=== PATIENT | female | born 1945 | race Caucasian/White ===

== ENCOUNTER 2022-07-07 14:06 | Inpatient (IN) ==
[2022-07-07] MEDS ORDERED: Naloxone 0.4 MG/ML INJ IVP PRN (17:41)
[2022-07-07] MEDS ORDERED: *HR* Dextrose 50 % in Water (Syg) 50 ML SYRINGE IVP PRN (17:51)
[2022-07-07] MEDS ORDERED: D5% in Water 1,000 ML IVC PRN (17:51)
[2022-07-07] MEDS ORDERED: Dextrose Gel 15 GM/37.5 ML TUBE PO PRN ×2 (17:51)
[2022-07-07] MEDS: Insulin LISPRO 300 UNITS/3 ML VIAL SUBQ SCH ×2 (18:21→22:17)
[2022-07-07 18:26] LABS: Immature Granulocytes % 0.4 % (0-4); Mean Platelet Volume 10.3 fL (9.4-12.4); Red Cell Distribution Width 15.9 % (11.5-14.5)
[2022-07-07 18:28] LABS: Basophils # 0.1 K/mcL (0.0-0.2); Basophils % 0.2 %; Eosinophils # 0.1 K/mcL (0.0-0.6); Eosinophils % 0.5 %; Hematocrit 32.7 % (35.3-44.9); Hemoglobin 9.9 g/dL (11.5-15.4); Lymphocytes % 41.6 %; Mean Corpuscular HGB Conc 30.3 g/dL (31.6-35.5); Mean Corpuscular Hemoglobin 26.6 pg (28.0-33.3); Mean Corpuscular Volume 87.9 fL (83.0-100.0); Monocytes # 7.8 K/mcL (0.0-1.3); Neutrophils # 8.7 K/mcL (1.6-8.9); Platelet Count 354 K/mcL (140-400); Red Blood Count 3.72 M/mcL (3.82-4.97); Segmented Neutrophils % 30.3 %; White Blood Count 28.8 K/mcL (4.3-11.1)
[2022-07-07 18:45] LABS: Calcium 9.5 mg/dL (8.6-10.3); Magnesium 2.4 mg/dL (1.6-2.6); Phosphorous 11.2 mg/dL (2.7-4.5); Potassium 5.7 mEq/L (3.5-5.1); Uric Acid 9.7 mg/dL (2.3-7.6)
[2022-07-07 18:48] LABS: Salicylate < 2.5 mg/dL (15.0-30.0)
[2022-07-07 19:04] LABS: Platelet Estimate Normal (Normal); Reactive Lymphocytes Present (Not Present)
[2022-07-07] MEDS ORDERED: Insulin Human Regular 10 UNIT in 0.9 % Sodium Chloride 10 ML IV ONE (19:19)
[2022-07-07] MEDS ORDERED: *HR* Dextrose 50 % in Water (Syg) 50 ML SYRINGE IVP ONE (19:19)
[2022-07-07] MEDS ORDERED: Sodium Bicarbonate 150 MEQ in D5% in Water 1,000 ML IVC SCH (19:30)
[2022-07-07] MEDS ORDERED: levoFLOXacin 750 MG/150 ML 750 MG/150 ML BAG IVPB SCH (20:00)
[2022-07-07 21:05] LABS: Bacteria,Urine Few per hpf (None-Few); Bilirubin,Urine Negative (Negative); Blood,Urine Moderate (Negative); Budding Yeast,Urine Few per hpf (None Seen); Clarity,Urine Turbid (Clear); Color,Urine Light-Yellow (Yellow); Glucose,Urine (UA) 300 mg/dL (Normal); Ketones,Urine Negative (Negative); Leukocyte Esterase,Urine Large (Negative); Mucus,Urine Few per lpf (None-Few); Nitrite,Urine Negative (Negative); PH,Urine 6.5 pH Units (5.0-8.0); Protein,Urine 70 mg/dL (Neg-Trace); Specific Gravity,Urine 1.012 (1.010-1.025); Squamous Epithelial Cell,Urine Moderate per hpf (None-Few); Transitional Epi Cells,Urine Moderate per hpf (None-Few); Urobilinogen,Urine Normal (Normal); WBC,Urine 50-100 per hpf (0-3)
[2022-07-07 21:10] LABS: Amphetamine Screen,Urine Negative ng/mL (Cutoff=1000); Barbiturate Screen,Urine Negative ng/mL (Cutoff=200); Benzodiazepines Screen,Urine Negative ng/mL (Cutoff=200); Cannabinoid Screen,Urine Negative ng/mL (Cutoff = 50); Cocaine Screen,Urine Negative ng/mL (Cutoff= 300); Opiate Screen,Urine Negative ng/mL (Cutoff=300); Phencyclidine Screen,Urine Negative ng/mL (Cutoff=25)
[2022-07-07 22:06] LABS: Creatine Kinase 38 Units/L (30-223)
[2022-07-07] MEDS: *HR* Heparin 5,000 UNIT/ML VIAL SQ SCH (22:09)
[2022-07-07] MEDS: Calcium Gluconate 1gm/50mL 1 GM/50 ML BAG IVPB SCH ×2 (22:20→23:09)
[2022-07-07] MEDS: Sodium Bicarbonate 150 MEQ in D5% in Water 1,000 ML IVC SCH (22:27)
[2022-07-07 22:37] LABS: Adenovirus F 40/41 PCR Not detected (Not detect); Astrovirus PCR Not detected (Not detect); C.difficile Toxin A/B Gene PCR Not detected (Not detect); Campylobacter by PCR Not detected (Not detect); Cryptosporidium by PCR Not detected (Not detect); Cyclospora cayetanensis PCR Not detected (Not detect); Entamoeba histolytica PCR Not detected (Not detect); Enteroaggregative E.coli(EAEC) Not detected (Not detect); Enteropathogenic E.coli(EPEC) Not detected (Not detect); Enterotoxigenic E.coli (ETEC) Not detected (Not detect); Giardia lamblia PCR Not detected (Not detect); Norovirus GI/GII PCR Not detected (Not detect); Plesiomonas shigelloides PCR Not detected (Not detect); Rotavirus A PCR Not detected (Not detect); Salmonella PCR Not detected (Not detect); Sapovirus PCR Not detected (Not detect); Shig/EnteroinvasiveE coli EIEC Not detected (Not detect); Shigalike tox-prod E coli STEC Not detected (Not detect); Vibrio PCR Not detected (Not detect); Vibrio cholerae PCR Not detected (Not detect); Yersinia enterocolitica PCR Not detected (Not detect)
[2022-07-08 04:41] LABS: Mean Corpuscular HGB Conc 30.7 g/dL (31.6-35.5); Red Cell Distribution Width 15.9 % (11.5-14.5)
[2022-07-08 04:43] LABS: Basophils # 0.1 K/mcL (0.0-0.2); Basophils % 0.2 %; Eosinophils # 0.2 K/mcL (0.0-0.6); Eosinophils % 0.9 %; Hematocrit 28.3 % (35.3-44.9); Hemoglobin 8.7 g/dL (11.5-15.4); Immature Granulocytes % 0.4 % (0-4); Lymphocytes # 10.7 K/mcL (0.6-4.6); Lymphocytes % 41.1 %; Mean Corpuscular Hemoglobin 26.6 pg (28.0-33.3); Mean Corpuscular Volume 86.5 fL (83.0-100.0); Mean Platelet Volume 10.5 fL (9.4-12.4); Monocytes # 7.1 K/mcL (0.0-1.3); Monocytes % 27.4 %; Neutrophils # 7.8 K/mcL (1.6-8.9); Platelet Count 294 K/mcL (140-400); Red Blood Count 3.27 M/mcL (3.82-4.97)
[2022-07-08 05:05] LABS: Albumin 3.1 g/dL (3.5-5.7); Bilirubin,Indirect 0.3 mg/dL (0.0-1.0); Bilirubin,Total 0.3 mg/dL (0.3-1.0); Calcium 8.7 mg/dL (8.6-10.3); Globulin 3.2 g/dL (2.4-3.5); Phosphorous 10.8 mg/dL (2.7-4.5); Potassium 4.6 mEq/L (3.5-5.1); Total Protein 6.3 g/dL (6.4-8.9)
[2022-07-08 05:20] LABS: Platelet Estimate Normal (Normal); Smudge Cells Present (Not Present)
[2022-07-08 05:27] LABS: Estimated Average Glucose 163 mg/dl; Hemoglobin A1C 7.3 %
[2022-07-08] MEDS: *HR* Heparin 5,000 UNIT/ML VIAL SQ SCH ×3 (07:12→22:10)
[2022-07-08] MEDS: Insulin LISPRO 300 UNITS/3 ML VIAL SUBQ SCH ×4 (08:24→22:10)
[2022-07-08] MEDS ORDERED: 0.9 % Sodium Chloride 250 ML IVC PRN (09:31)
[2022-07-08] MEDS ORDERED: *HR* Heparin 10,000 UNIT/10 ML VIAL IV PRN (09:31)
[2022-07-08] MEDS ORDERED: 0.9 % Sodium Chloride 2,000 ML PRIME SCH (09:45)
[2022-07-08 09:56] LABS: Hepatitis B Surface Antibody 57.77 mIU/mL
[2022-07-08 10:07] LABS: Hepatitis B Surface Antigen Nonreactive (Nonreactive)
[2022-07-08] MEDS: Sodium Bicarbonate 150 MEQ in D5% in Water 1,000 ML IVC SCH (10:20)
[2022-07-08] MEDS ORDERED: Heparin 1,000 UNITS/500 mL 500 ML ONE (13:15)
[2022-07-08] MEDS ORDERED: Lidocaine/EPI 1:100k 1% 50 ML VIAL ONE (13:15)
[2022-07-08] MEDS ORDERED: *HR* Heparin 5,000 UNIT/ML VIAL ONE (13:38)
[2022-07-08] MEDS: MetroNIDAZOLE 500 MG/100 ML 500 MG/100 ML BAG IVPB SCH ×2 (19:10→23:43)
[2022-07-09] MEDS: Acetaminophen 325 MG TABLET PO PRN ×2 (00:55→15:01)
[2022-07-09] MEDS: Ondansetron 4 MG/2 ML VIAL IVP PRN ×2 (03:25→16:57)
[2022-07-09 05:23] LABS: Hematocrit 27.7 % (35.3-44.9); Hemoglobin 8.6 g/dL (11.5-15.4); Mean Corpuscular Volume 86.8 fL (83.0-100.0); Mean Platelet Volume 10.5 fL (9.4-12.4); Platelet Count 251 K/mcL (140-400); Red Blood Count 3.19 M/mcL (3.82-4.97); Red Cell Distribution Width 15.5 % (11.5-14.5); White Blood Count 18.5 K/mcL (4.3-11.1)
[2022-07-09 05:43] LABS: Complement C3 111 mg/dL (87-200); Magnesium 1.7 mg/dL (1.6-2.6); Phosphorous 6.8 mg/dL (2.7-4.5); Potassium 3.9 mEq/L (3.5-5.1); Rheumatoid Factor 24 IU/mL (Less than 14)
[2022-07-09] MEDS: *HR* Heparin 5,000 UNIT/ML VIAL SQ SCH ×3 (06:23→20:15)
[2022-07-09] MEDS ORDERED: 0.9 % Sodium Chloride 250 ML IVC PRN (06:34)
[2022-07-09] MEDS ORDERED: 0.9 % Sodium Chloride 2,000 ML PRIME SCH (06:45)
[2022-07-09 08:05] LABS: Lymphocytes # 11.8 K/mcL (0.6-4.6); Monocytes # 0.7 K/mcL (0.0-1.3); Neutrophils # 5.9 K/mcL (1.6-8.9)
[2022-07-09] MEDS ORDERED: *HR* Heparin 10,000 UNIT/10 ML VIAL IV PRN (08:05)
[2022-07-09 08:07] LABS: Platelet Estimate Normal (Normal)
[2022-07-09] MEDS ORDERED: lisinopriL 5 MG TABLET PO SCH (09:00)
[2022-07-09] MEDS ORDERED: Sodium Bicarbonate 150 MEQ in D5% in Water 1,000 ML IVC SCH (09:15)
[2022-07-09] MEDS: Insulin LISPRO 300 UNITS/3 ML VIAL SUBQ SCH ×3 (09:28→17:57)
[2022-07-09 10:20] LABS: Hepatitis B Surface Antigen Nonreactive (Nonreactive)
[2022-07-09 10:48] LABS: Hepatitis C Virus Antibody Nonreactive (Nonreactive)
[2022-07-09 10:49] LABS: Hepatitis B Core IgM Nonreactive (Nonreactive)
[2022-07-09 10:51] LABS: Hepatitis A Antibody IgM Nonreactive (Nonreactive)
[2022-07-09] MEDS ORDERED: *HR* Heparin 5,000 UNIT/ML VIAL ONE (12:57)
[2022-07-09] MEDS: MetroNIDAZOLE 500 MG/100 ML 500 MG/100 ML BAG IVPB SCH ×2 (15:06→15:12)
[2022-07-09] MEDS: Loratadine 10 MG TABLET PO SCH (15:09)
[2022-07-09] MEDS: Aspirin Enteric Coated 81 MG Tablet PO SCH (15:09)
[2022-07-09] MEDS: predniSONE 20 MG TABLET PO SCH (15:12)
[2022-07-09 16:08] LABS: Protein/Creatinine Ratio,Urine 3.58 mg/mg (0.00-0.20); Sodium, Urine 87.5 mEq/L
[2022-07-09] MEDS: Insulin DETEMIR 100 UNIT/ML X5UNITS SUBQ SCH (20:14)
[2022-07-09] MEDS: levoFLOXacin 500 MG/100 ML 500 MG/100 ML BAG IVPB SCH (20:14)
[2022-07-10] MEDS: MetroNIDAZOLE 500 MG/100 ML 500 MG/100 ML BAG IVPB SCH ×3 (01:28→17:05)
[2022-07-10] MEDS: Ondansetron 4 MG/2 ML VIAL IVP PRN (01:28)
[2022-07-10] MEDS: *HR* Heparin 5,000 UNIT/ML VIAL SQ SCH ×3 (06:28→19:58)
[2022-07-10] MEDS: Insulin LISPRO 300 UNITS/3 ML VIAL SUBQ SCH ×3 (07:20→17:06)
[2022-07-10 08:11] LABS: Basophils % 0.2 %; Eosinophils % 0.1 %; Hematocrit 28.9 % (35.3-44.9); Hemoglobin 8.7 g/dL (11.5-15.4); Immature Granulocytes % 0.3 % (0-4); Lymphocytes # 9.8 K/mcL (0.6-4.6); Mean Corpuscular HGB Conc 30.1 g/dL (31.6-35.5); Mean Corpuscular Hemoglobin 26.1 pg (28.0-33.3); Mean Corpuscular Volume 86.8 fL (83.0-100.0); Mean Platelet Volume 10.4 fL (9.4-12.4); Monocytes % 21.8 %; Neutrophils # 7.1 K/mcL (1.6-8.9); Platelet Count 252 K/mcL (140-400); Red Blood Count 3.33 M/mcL (3.82-4.97); Red Cell Distribution Width 15.1 % (11.5-14.5); Segmented Neutrophils % 32.6 %; White Blood Count 21.7 K/mcL (4.3-11.1)
[2022-07-10 08:12] LABS: Calcium 7.9 mg/dL (8.6-10.3); Magnesium 1.7 mg/dL (1.6-2.6); Potassium 4.3 mEq/L (3.5-5.1)
[2022-07-10 08:15] LABS: Monocytes # 4.7 K/mcL (0.0-1.3)
[2022-07-10 08:16] LABS: Platelet Estimate Normal (Normal); Reactive Lymphocytes Present (Not Present)
[2022-07-10] MEDS ORDERED: *HR* Heparin 10,000 UNIT/10 ML VIAL IV PRN ×2 (09:40)
[2022-07-10] MEDS ORDERED: 0.9 % Sodium Chloride 250 ML IVC PRN (09:40)
[2022-07-10] MEDS: Aspirin Enteric Coated 81 MG Tablet PO SCH (10:26)
[2022-07-10] MEDS: predniSONE 20 MG TABLET PO SCH (10:26)
[2022-07-10] MEDS: Loratadine 10 MG TABLET PO SCH (10:26)
[2022-07-10] MEDS: Acetaminophen 325 MG TABLET PO PRN (18:06)
[2022-07-10] MEDS: Insulin DETEMIR 100 UNIT/ML X5UNITS SUBQ SCH (21:21)
[2022-07-11] MEDS: MetroNIDAZOLE 500 MG/100 ML 500 MG/100 ML BAG IVPB SCH ×4 (00:24→23:11)
[2022-07-11] MEDS: *HR* Heparin 5,000 UNIT/ML VIAL SQ SCH ×3 (05:20→22:02)
[2022-07-11 06:00] LABS: Hematocrit 31.1 % (35.3-44.9); Hemoglobin 9.4 g/dL (11.5-15.4); Mean Corpuscular HGB Conc 30.2 g/dL (31.6-35.5); Mean Corpuscular Hemoglobin 26.3 pg (28.0-33.3); Mean Corpuscular Volume 87.1 fL (83.0-100.0); Mean Platelet Volume 10.3 fL (9.4-12.4); Platelet Count 230 K/mcL (140-400); Red Blood Count 3.57 M/mcL (3.82-4.97); Red Cell Distribution Width 15.1 % (11.5-14.5); White Blood Count 24.5 K/mcL (4.3-11.1)
[2022-07-11 06:21] LABS: Calcium 8.1 mg/dL (8.6-10.3); Magnesium 1.9 mg/dL (1.6-2.6); Phosphorous 5.3 mg/dL (2.7-4.5); Potassium 4.2 mEq/L (3.5-5.1)
[2022-07-11 06:28] LABS: Platelet Estimate Normal (Normal)
[2022-07-11 06:30] LABS: Lymphocytes # 11.8 K/mcL (0.6-4.6); Neutrophils # 10.8 K/mcL (1.6-8.9); Reactive Lymphocytes Present (Not Present)
[2022-07-11] MEDS: Insulin LISPRO 300 UNITS/3 ML VIAL SUBQ SCH ×3 (07:53→16:59)
[2022-07-11] MEDS: Loratadine 10 MG TABLET PO SCH (08:47)
[2022-07-11] MEDS: Aspirin Enteric Coated 81 MG Tablet PO SCH (08:47)
[2022-07-11] MEDS: predniSONE 20 MG TABLET PO SCH (08:47)
[2022-07-11] MEDS: Ondansetron 4 MG/2 ML VIAL IVP PRN (10:26)
[2022-07-11 11:33] LABS: ANA IgG by ELISA NONE DETECTED (None Detected)
[2022-07-11] MEDS: Insulin DETEMIR 100 UNIT/ML X5UNITS SUBQ SCH (22:02)
[2022-07-11] MEDS: levoFLOXacin 500 MG/100 ML 500 MG/100 ML BAG IVPB SCH (22:02)
[2022-07-12] MEDS: *HR* Heparin 5,000 UNIT/ML VIAL SQ SCH ×3 (06:19→19:59)
[2022-07-12 06:52] LABS: Hematocrit 30.2 % (35.3-44.9); Hemoglobin 9.1 g/dL (11.5-15.4); Mean Corpuscular HGB Conc 30.1 g/dL (31.6-35.5); Mean Corpuscular Hemoglobin 26.6 pg (28.0-33.3); Mean Corpuscular Volume 88.3 fL (83.0-100.0); Mean Platelet Volume 10.8 fL (9.4-12.4); Platelet Count 220 K/mcL (140-400); Red Blood Count 3.42 M/mcL (3.82-4.97); Red Cell Distribution Width 15.1 % (11.5-14.5); White Blood Count 22.3 K/mcL (4.3-11.1)
[2022-07-12 07:14] LABS: Calcium 8.2 mg/dL (8.6-10.3); Potassium 4.3 mEq/L (3.5-5.1)
[2022-07-12] MEDS: Insulin LISPRO 300 UNITS/3 ML VIAL SUBQ SCH ×3 (08:28→17:22)
[2022-07-12] MEDS: Aspirin Enteric Coated 81 MG Tablet PO SCH (08:37)
[2022-07-12] MEDS: predniSONE 20 MG TABLET PO SCH (08:37)
[2022-07-12] MEDS: MetroNIDAZOLE 500 MG/100 ML 500 MG/100 ML BAG IVPB SCH ×2 (08:38→17:22)
[2022-07-12] MEDS: Loratadine 10 MG TABLET PO SCH (08:38)
[2022-07-12] MEDS ORDERED: 0.9 % Sodium Chloride 250 ML IVC PRN (09:43)
[2022-07-12] MEDS ORDERED: *HR* Heparin 10,000 UNIT/10 ML VIAL IV PRN ×2 (09:43)
[2022-07-12 09:45] LABS: Kappa Qnt Free Light Chains 244.23 mg/L (3.30-19.40); Lambda Qnt Free Light Chains 105.25 mg/L (5.71-26.30)
[2022-07-12 09:55] LABS: Serine Protease-3 Antibody 0 AU/mL (0-19)
[2022-07-12] MEDS ORDERED: Heparin 1,000 UNITS/500 mL 500 ML ONE (12:07)
[2022-07-12] MEDS ORDERED: *HR* Heparin 5,000 UNIT/ML VIAL ONE ×3 (12:26→14:25)
[2022-07-12 17:07] VITALS: TEMP 97.8
[2022-07-12 18:14] LABS: INR 1.2; Prothrombin Time 13.2 Seconds (9.4-12.1)
[2022-07-12 19:43] VITALS: BP 120/70; PULSE 100; O2SAT 94
[2022-07-12] MEDS: Insulin DETEMIR 100 UNIT/ML X5UNITS SUBQ SCH (19:59)
[2022-07-12 22:23] LABS: Alpha 2 Globulin (PEP) 1.07 g/dL (0.48-1.05); Beta Globulin (PEP) 0.64 g/dL (0.48-1.10)
[2022-07-13 13:59] LABS: IFE Reflexed NOT DONE
== END 2022-07-12 23:59 | disposition other institution (70) | DRG 683 ==
LOC: SUATTDRO 17:01 → 2NNU 17:01 → 2ANU 07-08 11:48
PROVIDERS: ADMIT Pharmacist; ATTEND Family Medicine